=== PATIENT | male | born 1985 | race Caucasian/White ===

== ENCOUNTER 2020-04-20 21:28 | Emergency (ER) | payer SELFPAY ==
[~2020-04-20] VITALS: Ht 185.4 cm; Wt 86.2 kg
[2020-04-20 21:30] VITALS: Ht 185.4 cm; Wt 86.2 kg
[2020-04-21 00:41] VITALS: BP 155/71
== END 2020-04-21 00:41 | disposition home or self-care (01) ==
LOC: ED 21:28
DX: U07.1 COVID-19 (principal); B34.9 Viral infection, unspecified; R07.89 Other chest pain; Z20.828 Contact with and (suspected) exposure to other viral communicable diseases
CPT/HCPCS: U0003